=== PATIENT | female | born 2000 | race Asian ===

== ENCOUNTER 2020-03-23 21:12 | Inpatient (IN) ==
[2020-03-23] MEDS ORDERED: NS 0.9% 1000 ml BAG 1,000 ML IV ONE ×2 (21:16→23:24)
[2020-03-23 21:41] LABS: ABS Basophils 0.1 10^3/ul (0-0.2); ABS Lymphocytes 2.4 10^3/ul (1.0-4.8); ABS Monocytes 1.2 10^3/ul (0-0.8); ABS Neutrophils 7.6 10^3/ul (1.5-7.7); Eosinophil % 0.3 %; Hematocrit 41 % (35-47); Hemoglobin 13.3 g/dL (12.0-16.0); Lymphocyte % 20.8 %; Mean Corpuscular HGB Conc 33 g/dL (31-36); Mean Corpuscular Hemoglobin 29 pg (27-31); Mean Corpuscular Volume 88 fL (80-97); Platelet Count 347 10^3/uL (150-450); Red Cell Distribution Width 14 % (10-15); White Blood Count 11.3 10^3/uL (3.5-10.8)
[2020-03-23 21:59] LABS: ALT 8 U/L (7-52); AST 12 U/L (13-39); Albumin 4.7 g/dL (3.2-5.2); Albumin/Globulin Ratio 1.6 (1-3); Alkaline Phosphatase 89 U/L (34-104); Anion Gap 14 mmol/L (2-11); Blood Urea Nitrogen 13 mg/dL (6-24); CO2 Carbon Dioxide 20 mmol/L (22-32); Calcium 9.5 mg/dL (8.6-10.3); Chloride 101 mmol/L (101-111); EGFR Non-African American 89.3 (>60); Glucose 121 mg/dL (70-100); Sodium 135 mmol/L (135-145); Total Protein 7.7 g/dL (6.4-8.9)
[2020-03-23 22:05] LABS: HCG Pregnancy < 0.60 mIU/mL
[2020-03-23 22:12] LABS: Acetaminophen < 15 mcg/mL; Alcohol, S < 10 mg/dL (<10); Creatine Kinase 61 U/L (10-223); Salicylate < 2.50 mg/dL (<30)
[2020-03-23] MEDS ORDERED: NS 0.9% 1000 ml BAG 1,000 ML IV SCH (23:30)
[2020-03-23 23:46] LABS: Urine Appearance Clear; Urine Bilirubin Negative (Negative); Urine Blood Negative (Negative); Urine Color Yellow; Urine Glucose Negative (Negative); Urine Ketones 1+ (Negative); Urine Nitrite Negative (Negative); Urine Protein Negative (Negative); Urine Specific Gravity 1.011 (1.010-1.030); Urine Urobilinogen Negative (Negative)
[2020-03-23 23:50] LABS: Urine Bacteria Absent (Absent); Urine Red Blood Cell Absent (Absent); Urine Squamous Epithelial Cell Present (Absent); Urine White Blood Cell Trace(0-5/hpf) (Absent)
[2020-03-24 00:04] LABS: Urine Benzodiazepine Screen None Detected (None Detect); Urine Cannabinoids Screen None Detected (None Detect); Urine Opiates Screen None Detected (None Detect)
[2020-03-24 06:02] LABS: ABS Basophils 0.1 10^3/ul (0-0.2); ABS Lymphocytes 1.6 10^3/ul (1.0-4.8); ABS Monocytes 0.8 10^3/ul (0-0.8); ABS Neutrophils 4.1 10^3/ul (1.5-7.7); Eosinophil % 0.4 %; Hematocrit 33 % (35-47); Lymphocyte % 24.2 %; Mean Corpuscular HGB Conc 34 g/dL (31-36); Mean Corpuscular Hemoglobin 29 pg (27-31); Mean Corpuscular Volume 88 fL (80-97); Mean Platelet Volume 6.6 fL (7.4-10.4); Platelet Count 232 10^3/uL (150-450); Red Blood Count 3.73 10^6 /uL (3.70-4.87); Red Cell Distribution Width 14 % (10-15); White Blood Count 6.6 10^3/uL (3.5-10.8)
[2020-03-24 06:14] LABS: INR 1.16 (0.82-1.09)
[2020-03-24 06:20] LABS: BUN/Creatinine Ratio 10.9 (8-20); Calcium 8.1 mg/dL (8.6-10.3); EGFR African American 141.7 (>60); EGFR Non-African American 117.1 (>60); Potassium 3.9 mmol/L (3.5-5.0)
[2020-03-24] MEDS ORDERED: Nicotine GUM 2MG FRUIT FLAVOR PO PRN (12:45)
[2020-03-24] MEDS ORDERED: Al Hydrox/Mg Hydrox/Simet LIQ 30 ML UDC PO PRN (12:45)
[2020-03-24] MEDS: Nicotine PATCH 14 MG/24 HR PATCH TRANSDERM SCH (13:55)
[2020-03-24] MEDS: Vitamin THERAPEUTIC TAB PO SCH (13:55)
[2020-03-25 10:07] VITALS: BP 112/76
[2020-03-25] MEDS: Vitamin THERAPEUTIC TAB PO SCH (10:39)
[2020-03-25] MEDS: Nicotine PATCH 14 MG/24 HR PATCH TRANSDERM SCH (10:40)
== END 2020-03-25 16:30 | disposition home or self-care (01) | DRG 755 ==
LOC: ED 21:12 → MEDTELE 21:12 → OBSVTOIN 23:21 → MEDTELE 03-24 01:15 → BSU 03-24 15:43
PROVIDERS: ADMIT Student in an Organized Health Care Education/Training Program; ATTEND Psychiatry & Neurology Psychiatry